=== PATIENT | female | born 1945 | race Hispanic/Latino ===

== ENCOUNTER 2021-03-27 20:07 | Emergency (ER) | payer MEDICARE, OTHER ==
[~2021-03-27] VITALS: Ht 160 cm; Wt 93.4 kg
[~2021-03-27 20:07] MED LIST: DICY20TA11 PO; DILT240C94 PO; LISI1TAB29 PO; METR-172 PO
[2021-03-27 20:16] VITALS: BP 179/97
[2021-03-27] MEDS ORDERED: ACETAMINOPHEN 500 MG TABLET PO ONE (21:00)
[2021-03-27] MEDS ORDERED: OCTYL 2-CYANOACRYLATE 1 EACH TP ONE (21:36)
[2021-03-27 22:00] VITALS: BP 148/65
[2021-03-27] MEDS ORDERED: NAPR-1180 PO (22:08)
== END 2021-03-27 22:17 | disposition home or self-care (01) ==
LOC: EDH 20:07
DX: S01.111A Laceration without foreign body of right eyelid and periocular area, initial encounter (principal); S46.912A Strain of unspecified muscle, fascia and tendon at shoulder and upper arm level, left arm, initial encounter; S80.02XA Contusion of left knee, initial encounter; S80.01XA Contusion of right knee, initial encounter; S60.222A Contusion of left hand, initial encounter; S60.221A Contusion of right hand, initial encounter; I10 Essential (primary) hypertension; Z79.899 Other long term (current) drug therapy; Z79.1 Long term (current) use of non-steroidal anti-inflammatories (NSAID); W01.0XXA Fall on same level from slipping, tripping and stumbling without subsequent striking against object, initial encounter; Y93.89 Activity, other specified; Y92.89 Other specified places as the place of occurrence of the external cause; Y99.8 Other external cause status
CPT/HCPCS: 12011; 70450; 70486; 72125; 73030

== ENCOUNTER → 2022-07-02 | Outpatient (CLI) | payer MEDICARE ==
[~2022-07-02] MED LIST changes: -DICY20TA11 PO; +DICY20TA3 PO; -LISI1TAB29 PO; +LISI1TAB53 PO; +NAPR-1180 PO
== END | disposition home or self-care (01) ==
LOC: RAH 12:25
PROVIDERS: ATTEND Family Medicine
DX: Z12.31 Encounter for screening mammogram for malignant neoplasm of breast (principal)
CPT/HCPCS: 77067

== ENCOUNTER → 2023-07-03 | Outpatient (CLI) | payer MEDICARE ==
[~2023-07-03] MED LIST changes: +DILT240C81 PO; -DILT240C94 PO
== END | disposition home or self-care (01) ==
LOC: RAH 12:32
PROVIDERS: ATTEND Internal Medicine
DX: Z12.31 Encounter for screening mammogram for malignant neoplasm of breast (principal)
CPT/HCPCS: 77067